=== PATIENT | male | born 1990 | race Hispanic/Latino ===

== ENCOUNTER 2018-09-09 19:41 | Emergency (ER) | payer OTHER ==
[2018-09-09] MEDS ORDERED: ORPHENADRINE CITRATE 30 MG/ML ML ONE (19:52)
[2018-09-09] MEDS ORDERED: IBUPROFEN 600 MG TABLET ONE (19:52)
== END 2018-09-09 20:17 | disposition home or self-care (01) ==
LOC: EDH 19:41
DX: S39.012A Strain of muscle, fascia and tendon of lower back, initial encounter (principal); Z72.0 Tobacco use; X58.XXXA Exposure to other specified factors, initial encounter; Y93.89 Activity, other specified; Y92.89 Other specified places as the place of occurrence of the external cause; Y99.8 Other external cause status
CPT/HCPCS: 99283; J2360

== ENCOUNTER 2019-01-04 20:55 | Emergency (ER) | payer OTHER ==
[2019-01-04] MEDS ORDERED: KETOROLAC TROMETHAMINE 60 MG/2 ML VIAL ONE (21:58)
[2019-01-04] MEDS ORDERED: DEXAMETHASONE SOD PHOSPHATE 10MG/ML 1ML VIAL ONE (21:58)
== END 2019-01-04 22:24 | disposition home or self-care (01) ==
LOC: EDH 20:55
DX: J02.9 Acute pharyngitis, unspecified (principal); M79.10 Myalgia, unspecified site; Z72.0 Tobacco use
CPT/HCPCS: 87880; 96372 ×2; 99284; J1100; J1885

== ENCOUNTER 2020-01-17 05:24 | Emergency (ER) | payer OTHER | END 2020-01-17 06:13 | disposition home or self-care (01) | LOC: EDH 05:24 | DX: K02.9 Dental caries, unspecified (principal); Z72.0 Tobacco use ==